=== PATIENT | female | born 1975 | race African-American/Black ===

== ENCOUNTER 2022-02-22 20:01 | Emergency (ER) | payer SELFPAY ==
[~2022-02-22] VITALS: Ht 149.9 cm; Wt 98.4 kg
[~2022-02-22 20:01] MED LIST: BUTA1CAP29 PO
[2022-02-22 20:05] VITALS: BP 173/89
--- NOTE | 2022-02-22 20:30 | PHYS DOC ---
Past Medical History Past Medical History: No Pertinent History Past Surgical History: No Surgical History Smoking Status: Current Every Day Smoker Alcohol Use: Occasionally Drug Use: Marijuana General Adult EDM: Chief Complaint: BACK PAIN - NO INJURY HPI: HPI: Patient is a 46 year old female with no significant medical history presenting to the ED today complaining of 10 out of 10 right low back pain radiating to the right lower extremity. Patient states symptoms began in November after falling off a [employer] truck. Denies any loss of consciousness. Denies any loss of bowel/bladder function. She states symptoms had improved for a while then on Sunday of this week symptoms reoccurred. Denies any new injuries since November. She states she works in a [employer]. She states she has tried ibuprofen with no relief. Review of Systems: Review of Systems: Constitutional: Denies fever or chills. []] : Denies dysuria. [] Musculoskeletal: Reports right low back pain radiating to the right lower extremity Integument: Denies rash. [] Neurologic: Denies headache, focal weakness or sensory changes. [] Psychiatric: Denies depression or anxiety. [] Heart Score: C/O Chest Pain: N/A Risk Factors: Risk Factors: DM, Current or recent (<one month) smoker, HTN, HLP, family history of CAD, obesity. Risk Scores: Score 0 - 3: 2.5% MACE over next 6 weeks - Discharge Home Score 4 - 6: 20.3% MACE over next 6 weeks - Admit for Clinical Observation Score 7 - 10: 72.7% MACE over next 6 weeks - Early Invasive Strategies Allergies: Allergies: Allergies Coded Allergies Type Severity Reaction Last Updated Verified No Known Drug Allergies 10/04/13 No Physical Exam: PE: Constitutional: Well developed, well nourished, no acute distress, non-toxic appearance. [] [] Abdomen: Bowel sounds normal, soft, no tenderness, no masses, no pulsatile masses. [] Skin: Warm, dry, no erythema, no rash. [] Back: Mild right SI joint tenderness, no midline lumbar spine tenderness, no CVA tenderness. Positive straight leg raise to the right at roughly 45 degrees Extremities: No tenderness, no cyanosis, no clubbing, ROM intact, no edema. [] Neurologic: Alert and oriented X 3, normal motor function, normal sensory function, no focal deficits noted. [] Psychologic: Affect normal, judgement normal, mood normal. [] Current Patient Data: Vital Signs: Vital Signs Date Time Temp Pulse Resp B/P (MAP) Pulse Ox O2 Delivery O2 Flow Rate FiO2 02/22/22 20:05 98.4 100 18 173/89 (117) 98 Room Air 98.4 EKG: EKG: [] Radiology/Procedures: Radiology/Procedures: []PROCEDURE: LUMBAR SPINE 2-3V Exam: Lumbar spine 2 views INDICATION: Pain, fall, pain TECHNIQUE: Frontal and lateral views of the lumbar spine Comparisons: None FINDINGS: Vertebral body heights and alignment are well-maintained. Mild degenerative facet arthropathy and lumbar spine. Visual is paraspinal soft tissues are unremarkable. IMPRESSION: Mild spondylotic changes in the lumbar spine Electronically signed by: Austin Edwards MD (02/22/2022 9:07 PM) [facility] DICTATED and SIGNED BY: AUSTIN EDWARDS MD DATE: 02/22/222103 Course & Med Decision Making: Course & Med Decision Making Pertinent Labs and Imaging studies reviewed. (See chart for details) This a 46-year-old female patient presented to the ED today complaining of right low back pain radiating to the right lower extremity, symptoms of been going on since November after falling but got worse on Sunday last week. Patient has no cauda equina syndrome symptoms. Lumbar spine x-rays noted for spondylosis otherwise no acute findings. Patient discharged to home. Follow-up with PCP in 1 to 2 weeks Ana Disclaimer: Ana Disclaimer: This electronic medical record was generated, in whole or in part, using a voice recognition dictation system. Departure Departure Impression: Primary Impression: Sciatica, right side Additional Impression: Spondylosis of lumbar spine Disposition: HOME / SELF CARE / HOMELESS Condition: STABLE Referrals: NO PCP (PCP) Follow-up with your doctor in 1 to 2 weeks Patient Instructions: Arthritis, Degenerative-Brief, Sciatica Additional Instructions: You were seen for low back pain, your lumbar spine x-rays were noted for arthritis. Please follow-up with your primary care doctor in 1 to 2 weeks. Take the prescribed medications as needed. Come back to the ED at any point symptoms worsen Scripts Hydrocodone Bit/Acetaminophen (HYDROCODONE-APAP 5-325 ) 1 Tab Tablet 1 TAB PO PRN Q6HRS PRN for PAIN, #10 TAB 0 Refills Prov: AMY MCKEON APRN 02/22/22 Cyclobenzaprine Hcl (CYCLOBENZAPRINE HCL) 10 Mg Tablet 1 TAB PO TID, #30 TAB Prov: AMY MCKEON APRN 02/22/22 AMY MCKEON APRN February 22, 2022 20:30
--- NOTE | 2022-02-22 21:09 | RAD ---
Exam: Lumbar spine 2 views INDICATION: Pain, fall, pain TECHNIQUE: Frontal and lateral views of the lumbar spine Comparisons: None FINDINGS: Vertebral body heights and alignment are well-maintained. Mild degenerative facet arthropathy and lumbar spine. Visual is paraspinal soft tissues are unremarkable. IMPRESSION: Mild spondylotic changes in the lumbar spine Electronically signed by: Eddie Davis MD (02/22/2022 9:07 PM) [facility]
[2022-02-22] MEDS ORDERED: HYDR-2761 PO (21:37)
[2022-02-22] MEDS ORDERED: CYCL10TA19 PO (21:37)
== END 2022-02-22 21:35 | disposition home or self-care (01) ==
LOC: ER 20:01
DX: M47.816 Spondylosis without myelopathy or radiculopathy, lumbar region (principal); M54.41 Lumbago with sciatica, right side; F17.200 Nicotine dependence, unspecified, uncomplicated
CPT/HCPCS: 72100; 99283